=== PATIENT | male | born 1990 ===

== ENCOUNTER 2024-06-16 20:13 | Emergency (ER) | payer BC ==
[~2024-06-16] VITALS: Ht 170.2 cm; Wt 102.3 kg
[2024-06-16 20:52] VITALS: TEMP 98.1
[2024-06-16] MEDS ORDERED: AMOX-457 PO (22:03)
[2024-06-16] MEDS: IBUPROFEN 400 MG TABLET PO ONE (22:06)
[2024-06-16] MEDS: AMOX TR/POT CLAV 875 MG/125 MG TABLET PO ONE (22:06)
[2024-06-16] MEDS: BACITRACIN 0.9 GM PACKET OINTMENT TP ONE (22:06)
[2024-06-16] MEDS: PERTUSS(ACELL),DIPH,TET/PF 0.5 ML SYRINGE [ADULT] IM. ONE (22:11)
[2024-06-16 22:15] VITALS: BP 127/82; PULSE 89; RESP 14; O2SAT 0
== END 2024-06-16 22:22 | disposition home or self-care (01) ==
LOC: EMS 20:13
DX: S61.551A Open bite of right wrist, initial encounter (principal); Z98.890 Other specified postprocedural states; W55.01XA Bitten by cat, initial encounter; Y93.89 Activity, other specified; Y92.89 Other specified places as the place of occurrence of the external cause; Y99.8 Other external cause status
CPT/HCPCS: 90471; 90715; 99283